=== PATIENT | female | born 1980 | race Two or more races ===

== ENCOUNTER 2018-04-05 16:29 | Emergency (ER) | payer BC ==
--- NOTE | 2018-04-05 16:51 | EDM.PDOC ---
ED HPI GENERAL MEDICAL PROBLEM - General Chief Complaint: Lower Extremity Injury/Pain Stated Complaint: TWISTED RT FOOT Time Seen by Provider: 04/05/18 16:50 Source of Information: Reports: Patient, RN, RN Notes Reviewed History Limitations: Reports: No Limitations - History of Present Illness INITIAL COMMENTS - FREE TEXT/NARRATIVE: C/O injury to Rt foot sustained yesterday when pt missed a step and twisted her foot. Denies any other injury. Denies any prior injury to the right foot. Onset: Today Duration: Constant Location: Reports: Lower Extremity, Right Quality: Reports: Ache Severity: Severe Worsens with: Reports: Immobilization, Movement (and attempted wt bearing) Associated Symptoms: Reports: No Other Symptoms Right Feet Pain Score (Numeric/FACES): 10 - Related Data Allergies Allergy/AdvReac Type Severity Reaction Status Date / Time No Known Allergies Allergy Verified 04/05/18 16:52 Home Meds: Home Meds Venlafaxine [Effexor XR] 04/05/18 [History] Past Medical History - Past Health History Medical/Surgical History: Denies Medical/Surgical History - Past Surgical History Female Surgical History: Reports: Hysterectomy Social & Family History - Family History Family Medical History: Noncontributory - Living Situation & Occupation Living situation: Reports: , with Spouse Occupation: Employed Review of Systems - Review of Systems Review Of Systems: ROS reveals no pertinent complaints other than HPI. ED EXAM, GENERAL - Physical Exam Exam: See Below Exam Limited By: No Limitations General Appearance: Alert, WD/WN, No Apparent Distress Throat/Mouth: Normal Inspection Head: Atraumatic, Normocephalic Neck: Normal Inspection Respiratory/Chest: No Respiratory Distress Peripheral Pulses: 3+: Dorsalis Pedis (L), Dorsalis Pedis (R) Back Exam: Normal Inspection Extremities: Normal Capillary Refill, Other (Rt lateral midfoot soft tissue swelling and bruising with acute tenderness) Neurological: Alert, Oriented, No Motor/Sensory Deficits Psychiatric: Normal Mood Skin Exam: Warm, Dry, Intact ED TRAUMA EXTREMITY PROCEDURES - Splinting Right Lower Extremity Splint Site: Rt foot Pre-Procedure NV Status: Normal Post-Procedure NV Status: Normal Splint Material: Boot Orthotic Applied & Form Fitted By: Nurse Provider Post-Splint Application NV Check: NV Status Normal, Good Position Complications: No Course - Vital Signs Last Recorded V/S: Last Vital Signs Temp 37.2 C 04/05/18 16:54 Pulse 90 04/05/18 16:54 Resp 18 04/05/18 16:54 BP 135/85 04/05/18 16:54 Pulse Ox 100 04/05/18 16:54 - Orders/Labs/Meds Orders: Active Orders 24 hr Category Date Time Status DME for Discharge [COMM] Routine Oth 04/05/18 17:46 Ordered DME for Discharge [COMM] Routine Oth 04/05/18 17:47 Ordered Meds: Medications Discontinued Medications Generic Name Dose Route Start Last Admin Trade Name Freq PRN Reason Stop Dose Admin Hydrocodone Bitart/Acetaminophen 1 tab 04/05/18 17:46 [place] 325-10 Mg PO 04/05/18 17:47 ONETIME ONE - Radiology Interpretation Free Text/Narrative:: Xray right foot: 5th MT fracture, see Rad. report. Departure - Departure Time of Disposition: 18:00 Disposition: Home, Self-Care 01 Condition: Good Clinical Impression: Closed fracture of fifth metatarsal bone of right foot Qualifiers: Encounter type: initial encounter Fracture alignment: displaced Qualified Code( s): S92.351A - Displaced fracture of fifth metatarsal bone, right foot, initial encounter for closed fracture - Discharge Information Instructions: Metatarsal Fracture Forms: ED Department Discharge Additional Instructions: Rx: [place] (Hydrocodone APAP) 5mg/325mg *Do not drive or work while under the influence of this medication. Use crutches, no weight bearing on right foot. Remove the splint boot only to shower. Off work until released by orthopedic surgeon. Call [phone] tomorrow morning to schedule an appointment at [facility] with Dr. Crocker. - My Orders Last 24 Hours: My Active Orders 04/05/18 17:46 DME for Discharge [COMM] Routine 04/05/18 17:47 DME for Discharge [COMM] Routine - Assessment/Plan Last 24 Hours: My Active Orders 04/05/18 17:46 DME for Discharge [COMM] Routine 04/05/18 17:47 DME for Discharge [COMM] Routine
--- NOTE | 2018-04-05 17:25 | CR ---
Clinical history: 38-year-old female injured right foot. Interpretation: Comminuted fracture base of the fifth metatarsal (surrounding soft tissue swelling and associated mil d diastases of fragments). Chronic arthritic changes first metatarsophalangeal joint great toe. Mild pes cavus. No sign of foreign body, other fracture or dislocation right foot.
[2018-04-05] MEDS ORDERED: Acetaminophen/HYDROcodone 325-10 MG Tab PO ONE (17:46)
== END 2018-04-05 18:19 | disposition home or self-care (01) ==
LOC: DL.ED 16:29
DX: S92.351A Displaced fracture of fifth metatarsal bone, right foot, initial encounter for closed fracture (principal); X50.9XXA Other and unspecified overexertion or strenuous movements or postures, initial encounter
CPT/HCPCS: 73630; 99283; A9270